=== PATIENT | female | born 1990 | race Caucasian/White ===

== ENCOUNTER 2021-04-13 19:24 | Emergency (ER) | payer MEDICAID, SELFPAY ==
[2021-04-13 19:26] VITALS: BP 110/66; PULSE 74; RESP 16; TEMP 36.4; O2SAT 99; BMI 21.4
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
--- NOTE | 2021-04-13 20:25 | RAD_ITS ---
EXAM: XR RIGHT TIBIA AND FIBULA, 2 VIEWS CLINICAL INDICATION: injury leg pain TECHNIQUE: Frontal and lateral views of the right tibia and fibula. This report was created using [employer] report generation technology. COMPARISON: None. FINDINGS: BONES/JOINTS: Unremarkable. No acute fracture. No subluxation. Normal alignment. Preservation of the joint space. No sclerotic or destructive changes observed. SOFT TISSUES: Unremarkable. No soft tissue swelling or gas. No radiopaque foreign body. RAD/Tibia & Fibula 2 Views IMPRESSION: Negative right tibia and fibula x-rays. Electronically Signed: John Lin MD at 20:57 EDT , Service support ,
[2021-04-13] MEDS: Ibuprofen 600 MG Tablet PO (21:13)
== END 2021-04-13 21:14 | disposition home or self-care (01) ==
PROVIDERS: Emergency Provider Emergency Medicine; PCP Nurse Practitioner Family
DX: S16.1XXA Strain of muscle, fascia and tendon at neck level, initial encounter (principal); S09.90XA Unspecified injury of head, initial encounter; S80.11XA Contusion of right lower leg, initial encounter; S80.211A Abrasion, right knee, initial encounter; S70.311A Abrasion, right thigh, initial encounter; S90.511A Abrasion, right ankle, initial encounter; V49.50XA Passenger injured in collision with unspecified motor vehicles in traffic accident, initial encounter; Y93.9 Activity, unspecified; Y92.410 Unspecified street and highway as the place of occurrence of the external cause; Y99.9 Unspecified external cause status; F17.210 Nicotine dependence, cigarettes, uncomplicated
CPT/HCPCS: 73590; 99285

== ENCOUNTER 2021-07-29 10:41 | Outpatient (CLI) | payer MEDICAID, SELFPAY ==
[2021-07-29 11:18] LABS: Absolute Lymphocyte Count 2.15 X10^3/uL (0.83-4.51); Absolute Neutrophil Count 3.8 X10^3/uL (2.0-7.7); Basophil# 0.04 X10^3/uL; Basophil% 0.6 % (0-1); Eosinophil# 0.12 X10^3/uL; Eosinophils% 1.8 % (0-5); Hemoglobin 12.6 g/dL (12.0-15.0); Lymphocyte # 2.15 X10^3/ul (0.83-4.51); Lymphocyte % 33.1 % (19-41); Mean Corp Hgb Conc 33.2 g/dL (32-36); Mean Corpuscular Hgb 29.4 pg (27.0-32.0); Mean Corpuscular Volume 88.8 fL (81-99); Mean Platelet Vol. 9.6 fl (6.2-12.0); Monocyte# 0.33 X10^3/uL; Monocyte% 5.1 % (0-10); NRBC Flagged by Analyzer 0 % (0-5); Neutrophil # 3.82 X10^3/uL (2.7-7.7); Neutrophil % 58.9 % (47-70); Platelet Count 247 K/mm3 (150-450); RBC Distribution Width CV 12.6 % (11.6-14.6); RBC Distribution Width SD 40.8 fl (35.1-43.9); Red Blood Count 4.28 M/mm3 (4.2-5.4); White Blood Count 6.5 K/mm3 (4.4-11.0)
[2021-07-29 12:19] LABS: HIV - WCH Non-Reactive (Nonreactive); Hepatitis B Surface Antigen Non-Reactive (Nonreactive); Hepatitis C Antibody Non-Reactive (Nonreactive); Rubella IgG Reactive (Nonreactive); Syphilis Antibodies Non-reactive
[2021-08-01 09:07] LABS: Chlamydia By Nucleic Acid AMP Negative (Negative)
[2021-08-01 14:31] LABS: Gonococcus By Nucleic Acid AMP Negative (Negative)
[2021-08-03 18:12] LABS: HPV APTIMA, High Risk Positive (Negative)
== END 2021-07-29 23:59 | disposition short-term general hospital (02) ==
PROVIDERS: PCP Nurse Practitioner Family; Visit Provider Student in an Organized Health Care Education/Training Program
DX: Z34.81 Encounter for supervision of other normal pregnancy, first trimester (principal); Z12.4 Encounter for screening for malignant neoplasm of cervix; Z11.3 Encounter for screening for infections with a predominantly sexual mode of transmission
CPT/HCPCS: 36415; 85025; 86703; 86762; 86780; 86803; 87086; 87088; 87340; 87491; 87591; 87624; 88175; G0145

== ENCOUNTER → 2021-08-26 12:32 | Outpatient (CLI) | payer MEDICAID, SELFPAY ==
[2021-08-26 13:52] LABS: NATERA MAILED SPECIMEN
[2021-09-01 18:08] LABS: Protein S, Free 72 % (61-136)
[2021-09-01 20:36] LABS: Anti-Cardiolipin Ab, IgA, Qn < 9 APL U/mL (0-11); Anti-Cardiolipin Ab, IgG, Qn < 9 GPL U/mL (0-14); Anti-Cardiolipin Ab, IgM, Qn < 9 MPL U/mL (0-12); Antithrombin 3 Function 99 % (75-135); Beta-2-Glycoprotein I IgA <9 (0-25); Beta-2-Glycoprotein I IgG <9 (0-20); Beta-2-Glycoprotein I IgM <9 (0-32); Protein C, Functional 112 % (73-180); Protein S, Total 61 % (60-150)
== END ==
PROVIDERS: PCP Nurse Practitioner Family
DX: O99.351 Diseases of the nervous system complicating pregnancy, first trimester (principal); O99.891 Other specified diseases and conditions complicating pregnancy; G43.109 Migraine with aura, not intractable, without status migrainosus; Q99.8 Other specified chromosome abnormalities
CPT/HCPCS: 36415; 81240; 81241; 85300; 85303; 85305; 85306; 86146; 86147

== ENCOUNTER → 2022-01-09 | Outpatient (CLI) | payer MEDICAID, SELFPAY ==
[2022-01-09 11:57] LABS: Hematocrit 33.2 % (37-47); Hemoglobin 10.8 g/dL (12.0-15.0); Mean Corp Hgb Conc 32.5 g/dL (32-36); Mean Corpuscular Hgb 29.8 pg (27.0-32.0); Mean Corpuscular Volume 91.5 fL (81-99); Mean Platelet Vol. 9.7 fl (6.2-12.0); Platelet Count 194 K/mm3 (150-450); RBC Distribution Width CV 12.6 % (11.6-14.6); RBC Distribution Width SD 42.1 fl (35.1-43.9); Red Blood Count 3.63 M/mm3 (4.2-5.4)
[2022-01-09 12:23] LABS: Glucose Challenge Gest 1H 50g 133 mg/dL (70-140)
[2022-01-09 12:47] LABS: Syphilis Antibodies Non-reactive
== END | disposition home or self-care (01) ==
LOC: WOBLAB 10:50
PROVIDERS: PCP Nurse Practitioner Family; Visit Provider Obstetrics & Gynecology
DX: Z34.83 Encounter for supervision of other normal pregnancy, third trimester (principal)
CPT/HCPCS: 36415; 82950; 85027; 86780

== ENCOUNTER → 2022-02-10 | Outpatient (CLI) | payer MEDICAID, SELFPAY | END | disposition home or self-care (01) | LOC: LABSPEC 16:31 | PROVIDERS: PCP Nurse Practitioner Family; Visit Provider Student in an Organized Health Care Education/Training Program | DX: Z34.83 Encounter for supervision of other normal pregnancy, third trimester (principal) | CPT/HCPCS: 87077; 87081 ==

== ENCOUNTER 2022-02-13 08:00 | Inpatient (IN) | payer MEDICAID, SELFPAY ==
[2022-02-13] VITALS (70 sets, daily range): BP systolic 89–117; BP diastolic 40–78; PULSE 64–101; RESP 16; TEMP 36.2–38.3; O2SAT 90–100; BMI 29.9
[2022-02-13] MEDS: Lactated Ringers 1,000 ML 50 ML IV (08:37)
[2022-02-13] MEDS: Oxytocin 30 units/NS 500 ml 30 UNITS/500 ML IV.SOLN IV (08:47)
[2022-02-13 08:58] LABS: Absolute Lymphocyte Count 1.35 X10^3/uL (0.83-4.51); Absolute Neutrophil Count 8.8 X10^3/uL (2.0-7.7); Basophil# 0.03 X10^3/uL; Basophil% 0.3 % (0-1); Eosinophil# 0.05 X10^3/uL; Eosinophils% 0.5 % (0-5); Hematocrit 32.2 % (37-47); Hemoglobin 10.6 g/dL (12.0-15.0); Lymphocyte # 1.35 X10^3/ul (0.83-4.51); Lymphocyte % 12.4 % (19-41); Mean Corp Hgb Conc 32.9 g/dL (32-36); Mean Corpuscular Hgb 29.6 pg (27.0-32.0); Mean Corpuscular Volume 89.9 fL (81-99); Mean Platelet Vol. 9.6 fl (6.2-12.0); Monocyte# 0.59 X10^3/uL; Monocyte% 5.4 % (0-10); NRBC Flagged by Analyzer 0 % (0-5); Neutrophil # 8.83 X10^3/uL (2.7-7.7); Neutrophil % 80.9 % (47-70); Platelet Count 183 K/mm3 (150-450); RBC Distribution Width CV 13.4 % (11.6-14.6); RBC Distribution Width SD 44.4 fl (35.1-43.9); Red Blood Count 3.58 M/mm3 (4.2-5.4); White Blood Count 10.9 K/mm3 (4.4-11.0)
[2022-02-13] MEDS: LACTATED RINGERS 500 ML 999 ML IV (11:12)
[2022-02-13] MEDS: fentaNYL-bupivacaine (epidural) 100 ML BAG EPIDURAL (11:54)
[2022-02-13] MEDS: Penicillin G 3,000,000 Units 50 ML 100 UNITS IV (12:33)
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
[2022-02-13] MEDS: Oxytocin 30 units/NS 500 ml 30 UNITS/500 ML IV.SOLN 334 UNITS IV (13:30)
[2022-02-13] MEDS: Methylergonovine 0.2 MG/ML Ampul IM (13:35)
--- NOTE | 2022-02-13 13:48 | EX.PCM.OBRPT ---
Maternal Data Information Final CHRISTA: 02/18/22 Final CHRISTA Source: LMP Vaginal Delivery Maternal Presentation Maternal Presentation: Elective Induction Type of Induction: Pitocin and Amniotomy Operative Information Date of Procedure: 02/13/22 Pre-Operative Diagnosis: Peres intrauterine Post-Operative Diagnosis: Peres intrauterine Surgery / Procedure Performed: Spontaneous Vaginal Delivery Type of Anesthesia: Epidural Estimated Blood Loss: 250cc Findings Description of Procedure: Spontaneous vaginal delivery of viable infant female. No nuchal cord. Baby to mom. Cord clamped and cut. Spontaneous delivery of placenta. No lacerations. One-time dose of Methergine given prophylactically due to grand multiparity. A Gender: Female (1 minute): 9 (5 minute): 9
--- NOTE | 2022-02-13 14:06 | NURSING ---
Fentanyl 100 mcg Epidural bag was administered at 1154 by this RN and Ciara Pina CRNA
[2022-02-13] MEDS: 0.9% Saline Lock 10 ML Syringe IV (16:12)
[2022-02-13] MEDS: Propranolol LA 60 MG Capsule PO (17:15)
[2022-02-13] MEDS: Acetaminophen 500 MG Tablet 1000 MG PO (21:37)
[2022-02-13] MEDS: Ibuprofen 600 MG Tablet PO (22:05)
[2022-02-14] VITALS (16 sets, daily range): BP systolic 74–108; BP diastolic 39–52; PULSE 57–68; RESP 16–18; TEMP 36.1–37.3; O2SAT 95–98
[2022-02-14 05:24] LABS: Absolute Lymphocyte Count 2.37 X10^3/uL (0.83-4.51); Basophil# 0.03 X10^3/uL; Basophil% 0.3 % (0-1); Eosinophil# 0.15 X10^3/uL; Eosinophils% 1.4 % (0-5); Hematocrit 28.5 % (37-47); Hemoglobin 9.3 g/dL (12.0-15.0); Lymphocyte # 2.37 X10^3/ul (0.83-4.51); Lymphocyte % 22.2 % (19-41); Mean Corp Hgb Conc 32.6 g/dL (32-36); Mean Corpuscular Hgb 29.6 pg (27.0-32.0); Mean Corpuscular Volume 90.8 fL (81-99); Mean Platelet Vol. 9.3 fl (6.2-12.0); Monocyte# 1.06 X10^3/uL; Monocyte% 9.9 % (0-10); NRBC Flagged by Analyzer 0 % (0-5); Neutrophil % 65.5 % (47-70); Platelet Count 171 K/mm3 (150-450); RBC Distribution Width CV 13.5 % (11.6-14.6); RBC Distribution Width SD 45.1 fl (35.1-43.9); Red Blood Count 3.14 M/mm3 (4.2-5.4); White Blood Count 10.7 K/mm3 (4.4-11.0)
--- NOTE | 2022-02-14 05:27 | PN.OBGYN_ITS ---
Subjective Subjective Patient feeling tired this morning. Lochia minimal. No migraines. Objective Data Objective Data Vital Signs: Vital Signs Temp Pulse Resp BP Pulse Ox O2 Del Method 97 F L 58 L 16 89/51 L 95 Room Air 02/14/22 05:01 02/14/22 05:07 02/14/22 05:01 02/14/22 05:07 02/14/22 05:01 02/14/22 05:01 Oxygen Delivery Method Room Air Weight: 86.636 kg Body Mass Index (BMI) 29.9 Intake & Output: Intake and Output for Last 24 Hours 02/12/22 02/13/22 02/14/22 23:59 23:59 23:59 Intake Total 1581.80 / 1581.80 Output Total 1250 / 1250 Balance 331.80 / 331.80 Lab / Micro Data Attestation: I reviewed the patient's lab results. Result Diagrams: 02/14/22 05:20 Labs: Laboratory Results - last 24 hr 02/13/22 08:35: WBC 10.9, RBC 3.58 L, Hgb 10.6 L, Hct 32.2 L, MCV 89.9, MCH 29.6, MCHC 32.9, RDW Std Deviation 44.4 H, RDW Coeff of Robby 13.4, Plt Count 183, MPV 9.6, Immature Gran % (Auto) 0.500, Neut % (Auto) 80.9 H, Lymph % (Auto) 12.4 L, [place] % (Auto) 5.4, Eos % (Auto) 0.5, Baso % (Auto) 0.3, Absolute Neuts (auto) 8.8 H, Absolute Lymphs (auto) 1.35, Nucleated RBC % 0 02/13/22 08:35: Blood Type A POSITIVE, Antibody Screen NEGATIVE 02/14/22 05:20: WBC 10.7, RBC 3.14 L, Hgb 9.3 L, Hct 28.5 L, MCV 90.8, MCH 29.6, MCHC 32.6, RDW Std Deviation 45.1 H, RDW Coeff of Robby 13.5, Plt Count 171, MPV 9.3, Immature Gran % (Auto) 0.700, Neut % (Auto) 65.5, Lymph % (Auto) 22.2, [place] % (Auto) 9.9, Eos % (Auto) 1.4, Baso % (Auto) 0.3, Absolute Neuts (auto) 7.0, Absolute Lymphs (auto) 2.37, Nucleated RBC % 0 Micro: Microbiology 02/13/22 08:40 Nasal Secretion SARS-CoV-2 Antigen (Rapid) - Final Physical Exam Const alert, oriented x3 and no apparent distress HEENT normocephalic Head and Scalp: atraumatic Neck full ROM Resp normal respiratory effort and clear to auscultation bilaterally Cardio regular rate GI normal to inspection, nondistended, normoactive bowel sounds GI Narrative: Uterus 2 cm below umbilicus. No fundal tenderness. No purulent lochia. Back/Spine normal ROM Extremity normal to inspection Extremity Narrative: Minimal pedal edema Neuro no focal motor deficits and no sensory deficits noted Psych mental status grossly normal and affect normal Assessment & Plan (1) Vaginal delivery: PLAN: day 1 status post . Complicated by migraines with aura, presence of brain cyst that has been stable, fever. ? fever. Patient had one-time fever of 100.9 ?F orally at 2100 on 02/13. Patient has no symptoms: No cough, rhinorrhea, wheezing, no fundal tenderness or purulent lochia. Afebrile since that time. No leukocytosis on CBC this morning. No evidence of infection. Could be secondary to epidural, though several hours after delivery. We will continue to monitor for at least 24 hours after fever. No need to start antibiotics at this time as patient is asymptomatic, afebrile, no leukocytosis present. ?Hypotension. Likely secondary to propranolol. CBC stable. Will discontinue today. Patient to follow-up with a neurologist for management of migraines. She did not take this during I doubt that is delivered has alternative options. ?Brain cyst. Stable, patient asymptomatic. We will follow-up with neurologist and neurosurgeon. ?Stable anemia of . Slight decrease in hemoglobin secondary to delivery. Iron supplement on home-going. Patient would like ongoing today even if late in the evening. Will consider however would recommend that patient be monitored for 24 hours after fever. Likely home in AM. (2) Migraines: (3) Depression: (4) Herniated cervical disc: (5) Cyst of brain:
--- NOTE | 2022-02-14 05:34 | DCINST_ITS ---
Discharge Instructions Diet Discharge Diet: No restrictions Activity Discharge Activity: Return to Normal Activity and May Shower May resume sexual activity in: 4-6 weeks Weight Bearing Status: Weight bearing as tolerated Lifting Restrictions: No greater than 25 pounds Dressing / Incision Call your doctor if you observe: Fever of 101 or Higher, Change in Color, Inability to urinate, Using more than 1 pad per hour, Shortness of breath, Dizziness, Swelling in the ankles, Chest pain and Calf discomfort Follow Up Care Please Follow Up With: Coty Polo DO When: 2-week appointment and 6-week visit Please make appointment with neurologist and neurosurgeon for follow up and management of migraines/brain cyst. Test Results: Test results from this visit will be discussed in further detail at your follow- up appointment, if applicable. Discharge Plan Admission Admit Date/Time: 02/13/22 08:00 Primary Reason for Your Visit: Vaginal delivery Attending Provider: Coty Polo Primary Care Provider: An Edwards NP Discharge Orders/Prescriptions Prescriptions: No Action propranolol 60 mg Tablet 60 mg rizatriptan 10 mg tablet Label Comments: take 1 tablet by mouth AT ONSET OF HEADACHE may repeat in 2 hours... (REFER TO PRESCRIPTION NOTES). sumatriptan succinate 50 mg tablet PO Label Comments: take 1 tablet by mouth AT ONSET OF MIGRAINE and may repeat in 2 h... (REFER TO PRESCRIPTION NOTES). Referrals / Follow Up: An Edwards NP, FOOD SAFETY TECHNICIAN-C [Primary Care Provider] - Disposition Disposition (needs filled in before D/C Order can be placed): Home, Self Care
[2022-02-14] MEDS: Ibuprofen 600 MG Tablet PO (10:52)
[2022-02-14] MEDS: 0.9% Saline Lock 10 ML Syringe IV (10:53)
--- NOTE | 2022-02-14 17:09 | NURSING ---
1709-going to sign out AMA
== END 2022-02-14 17:26 | disposition left against medical advice (07) | DRG 560 ==
PROVIDERS: Admitting Provider Student in an Organized Health Care Education/Training Program; PCP Nurse Practitioner Family; Visit Provider Student in an Organized Health Care Education/Training Program
DX: O99.354 Diseases of the nervous system complicating childbirth (principal); Z37.0 Single live birth; M50.20 Other cervical disc displacement, unspecified cervical region; G43.109 Migraine with aura, not intractable, without status migrainosus; G93.0 Cerebral cysts; F17.200 Nicotine dependence, unspecified, uncomplicated; I95.2 Hypotension due to drugs; O99.334 Smoking (tobacco) complicating childbirth; O99.344 Other mental disorders complicating childbirth; F32.A Depression, unspecified; O9A.23 Injury, poisoning and certain other consequences of external causes complicating the puerperium; O99.43 Diseases of the circulatory system complicating the puerperium; T44.7X5A Adverse effect of beta-adrenoreceptor antagonists, initial encounter; O86.4 Pyrexia of unknown origin following delivery; Z3A.39 39 weeks gestation of pregnancy
CPT/HCPCS: 59025; 59050; 85025; 86850; 86900; 86901; 87077; 87081; 87186; 87426; 99218; 99406; J7120; A4216; G0378